=== PATIENT | female | born 1985 | race Caucasian/White ===

== ENCOUNTER 2017-04-05 19:48 | Emergency (ER) | payer SELFPAY ==
[~2017-04-05] VITALS: Ht 160 cm; Wt 57.0 kg
[~2017-04-05 19:48] MED LIST: Z.0.NO CURRENT MEDS
[2017-04-05 19:49] VITALS: BP 154/83; PULSE 71; RESP 16; TEMP 97.7; O2SAT 98
--- NOTE | 2017-04-05 20:09 | PD ---
HPI Chief Complaint: Oral / Dental Pain or Problem Time Seen by Provider: 20:09 Travel History International Travel<30 days: No Contact w/Intl Traveler<30days: No Traveled to known affect area: No History of Present Illness HPI 31-year-old female presents to the emergency department complaining of left upper and lower molar tooth pain after an extraction that occurred Friday. States that she went to the dentist for 2-3 extractions and was given 2 days of pain medication. Since then she has developed an unusual taste in her mouth and had multiple clots. States that the suture "popped" then started developing symptoms. Patient states the pain is moderate and has been using Aleve and ibuprofen without significant relief. Patient states that she felt mildly feverish last night but has not checked her temperature. Patient denies any other medical issues today. PFSH Past Medical History Anxiety: Yes Diminished Hearing: No Psychiatric: Yes (ANXIETY, PANIC ATTACKS) ?: Not LMP: 03/19/17 : 0 Social History Alcohol Use: Yes (SOCIAL; HAD ONE TODAY) Tobacco Use: Yes (1/2 PPD) Substance Use: Yes Allergies-Medications (Allergen,Severity, Reaction): Coded Allergies: No Known Allergies (Verified Adverse Reaction, Unknown, 04/05/17) Reported Meds & Prescriptions Reported Meds & Active Scripts Active Clindamycin (Clindamycin HCl) 300 Mg Cap 300 Mg PO TID Tramadol (Tramadol HCl) 50 Mg Tab 50 Mg PO Q8H PRN 2 Days Reported No Current Meds (Miscellaneous Medication) Misc Review of Systems Except as stated in HPI: all other systems reviewed are Neg Physical Exam Narrative GENERAL: Well-nourished, well-developed patient. SKIN: Focused skin assessment warm/dry. HEAD: Normocephalic. EYES: No scleral icterus. No injection or drainage. NECK: Supple, trachea midline. No JVD or lymphadenopathy. Mouth: Left upper premolar area- fresh area of open gingiva, possible clots. Left lower molar- area of brown and white. No fluctuance over gingiva, no obvious expression of fluid. TTP over left lower jawline. No cervical lymphadenopathy. CARDIOVASCULAR: Regular rate and rhythm without murmurs, gallops, or rubs. RESPIRATORY: Breath sounds equal bilaterally. No accessory muscle use. GASTROINTESTINAL: Abdomen soft, non-tender, nondistended. MUSCULOSKELETAL: No cyanosis, or edema. BACK: Nontender without obvious deformity. No CVA tenderness. Data Data Last Documented VS Vital Signs Date Time Temp Pulse Resp B/P (MAP) Pulse Ox O2 Delivery O2 Flow Rate FiO2 04/05/17 19:49 97.7 71 16 154/83 (106) 98 Room Air Orders Orders Clindamycin Inj (Cleocin Inj) (04/05/17 20:30) Ed Discharge Order (04/05/17 20:35) MDM Medical Decision Making Medical Screen Exam Complete: Yes Emergency Medical Condition: Yes Differential Diagnosis Tooth abscess versus dental infection versus pulpitis versus gingivitis Narrative Course 31-year-old female presents to the emergency department complaining of left upper and lower molar tooth pain after an extraction that occurred Friday. States that she went to the dentist for 2-3 extractions and was given 2 days of pain medication. Since then she has developed an unusual taste in her mouth and had multiple clots. States that the suture "popped" then started developing symptoms. Patient states the pain is moderate and has been using Aleve and ibuprofen without significant relief. Patient states that she felt mildly feverish last night but has not checked her temperature. Patient denies any other medical issues today. Vital signs stable Physical exam consistent with dental infection. Patient recently from [place]. E force consulted and now controlled substance medications have been filled by this patient in [place]. Clindamycin IM We'll prescribe clindamycin and tramadol. Patient understands she needs to go to the dentist and will no longer receive pain medications from this emergency department for this issue. Diagnosis Primary Impression: Dental infection Referrals: Dentist Additional Instructions: Follow-up with a dentist within 2 days. Take all medications as prescribed. Use tramadol sparingly Scripts Clindamycin (Clindamycin) 300 Mg Cap 300 MG PO TID for Infection, #21 CAP 0 Refills Prov: Nataly Snowden MD 04/05/17 Tramadol (Tramadol) 50 Mg Tab 50 MG PO Q8H Y for PAIN for 2 Days, #6 TAB 0 Refills Prov: Nataly Snowden MD 04/05/17 Disposition: 01 DISCHARGE HOME Condition: Stable Neda Thakur Apr 05, 2017 20:09
[2017-04-05] MEDS ORDERED: TRAM50TA PO (20:23)
[2017-04-05] MEDS ORDERED: CLIN300C5 PO (20:23)
[2017-04-05] MEDS ORDERED: CLINDAMYCIN PHOS 600 MG/4 ML VIAL IM ONE (20:30)
[2017-04-05] MEDS ORDERED: NAPR500T2 PO (22:06)
== END 2017-04-05 22:19 | disposition home or self-care (01) ==
LOC: NEPD 19:48
DX: K04.7 Periapical abscess without sinus (principal); F17.200 Nicotine dependence, unspecified, uncomplicated; Z98.890 Other specified postprocedural states; Z86.59 Personal history of other mental and behavioral disorders
CPT/HCPCS: 96372